=== PATIENT | female | born 1930 | race Caucasian/White ===

== ENCOUNTER 2018-02-08 19:06 | Inpatient (IN) | payer MEDICARE, MEDICAID ==
[~2018-02-08] VITALS: Ht 165.1 cm; Wt 79.8 kg
[~2018-02-08 19:06] MED LIST: AMIN30LI2 PO; ASCO500C16 PO; ATOR20TA PO; CALC1TAB84 PO; CARV25TA2 PO; CHOL200074 PO; CLON0.1T PO; DONE5TAB7 PO; GUAI120S17 PO; HYDR-3326 PO; HYDR-4077 PO; HYDR-552 PO; ISON300T4 PO; LORA10CA PO; MIRT7.5T10 PO; OMEP20TA20 PO; PYRI50TA14 PO; ZOLP5TAB2 PO
--- NOTE | 2018-02-08 19:10 | NUR ---
Dr. Martin at bedside for MSE.
[2018-02-08] MEDS ORDERED: METRONIDAZOLE 500 MG/NS 100ML 100 ML IV ONE ×2 (19:30→19:39)
[2018-02-08] MEDS ORDERED: DEXAMETHASONE SOD PHOSPHATE 4 MG INJ IV ONE (19:30)
[2018-02-08] MEDS ORDERED: CEFEPIME HCL 1 G in IV DEXTROSE 5% 50 ML IV ONE (19:30)
[2018-02-08] MEDS ORDERED: VANCOMYCIN IV 1,000 MG in IV DEXTROSE 5% 250 ML IV ONE (19:30)
[2018-02-08] MEDS ORDERED: IV NORMAL SALINE 1000 ML BAG IV ONE (19:30)
[2018-02-08] MEDS ORDERED: DEXAMETHASONE SOD PHOSPHATE 10 MG INJ ONE (19:38)
[2018-02-08] MEDS ORDERED: VANCOMYCIN IV 200 ML ONE (19:39)
[2018-02-08] MEDS ORDERED: CEFEPIME HCL 1 G VIAL ONE (19:41)
[2018-02-08 19:49] LABS: BASOPHILS # (AUTO) 0.1 K/uL (0.0-8.0); BASOPHILS % (AUTO) 0.5 % (0.0-2.0); EOSINOPHILS # (AUTO) 0.1 K/uL (0.0-0.7); HEMATOCRIT 32.3 % (31.2-41.9); HEMOGLOBIN 10.5 g/dL (10.9-14.3); LYMPHOCYTES # (AUTO) 0.8 K/uL (20.0-40.0); LYMPHOCYTES % (AUTO) 8.2 % (20.5-51.5); MEAN CORPUSCULAR HEMOGLOBIN 29.9 uug (24.7-32.8); MEAN CORPUSCULAR HGB CONC 33 g/dL (32.3-35.6); MEAN CORPUSCULAR VOLUME 91.9 fL (75.5-95.3); MONOCYTES # (AUTO) 1.1 K/uL (2.0-10.0); MONOCYTES % (AUTO) 11.8 % (0.0-11.0); NEUTROPHILS # (AUTO) 7.6 K/uL (1.8-8.9); NEUTROPHILS % (AUTO) 78.5 % (38.5-71.5); PLATELET COUNT (AUTO) 168 K/uL (179-408); RED BLOOD CELL COUNT(AUTO) 3.51 MIL/uL (3.63-4.92); WHITE BLOOD COUNT (AUTO) 9.7 K/uL (3.8-11.8)
[2018-02-08 20:02] LABS: CARBON DIOXIDE 29 mmol/L (21-32); CHLORIDE 101 mmol/L (98-107); CREATININE 3.1 mg/dL (0.6-1.3); GLUCOSE 117 mg/dL (74-106); POTASSIUM 3.2 mmol/L (3.5-5.1); UREA NITROGEN, BLOOD 47 mg/dL (7-18)
[2018-02-08 20:15] LABS: ALANINE AMINOTRANSFERASE 26 U/L (14-59); ALKALINE PHOSPHATASE 56 U/L (50-136); ASPARTATE AMINOTRANSFERASE 20 U/L (15-37); BILIRUBIN,DIRECT 0.2 mg/dL (0.0-0.2); BILIRUBIN,TOTAL 0.6 mg/dL (0.2-1.0); TOTAL PROTEIN, SERUM 6.2 g/dL (6.4-8.2)
--- NOTE | 2018-02-08 20:43 | NUR ---
Dr. Martin on panel call with Dr. Janel Roblero.
--- NOTE | 2018-02-08 21:34 | NUR ---
Passed report to Sherrie BERRIOS Tele
[2018-02-08] MEDS ORDERED: ACET-2154 PO (21:50)
[2018-02-08] MEDS ORDERED: [UNRECOGNIZED DRUG - CODE] TP (21:50)
[2018-02-08] MEDS ORDERED: PANT40TA2 PO (21:50)
[2018-02-08] MEDS ORDERED: FURO-151 PO (21:50)
[2018-02-08] MEDS ORDERED: MELA3TAB PO (21:50)
[2018-02-08] MEDS ORDERED: FAMO-132 PO (21:50)
[2018-02-08] MEDS ORDERED: ONDA4TAB5 PO (21:50)
[2018-02-08] MEDS ORDERED: FERR325T24 PO (21:50)
[2018-02-08] MEDS ORDERED: POTA10TA15 PO (21:50)
[2018-02-08] MEDS ORDERED: BENZ1LOZ58 MM (21:50)
[2018-02-08] MEDS ORDERED: FAMO1TAB29 PO (21:50)
--- NOTE | 2018-02-08 22:00 | NUR ---
Patient in bed, no acute signs of distress, confused and disoriented x 2, oriented to person.
--- NOTE | 2018-02-08 23:00 | NUR ---
RECEIVED PT FROM ER BY Edwin CHASE. PT IS AWAKE AND CONFUSED. SHE CAN ONLY RECOGNIZE HER NAME. PT ADMITTED TO TEL. BELONGING LIST DONE. ADMISSION PROCESS AND CAREPLAN INITITATED. ASSISTED ASSESSMENT DONE. PHOTO TAKEN FOR HER NOSE,RIGHT GROIN, SACRAL AREA, RIGHT UPPERARM. THERE'S REDNESS ALSO IN HER LEFT GROIN.PT ON 2L NASAL CANULA. IV INTACT AND PATENT. CALL LIGHT WITHIN REACH. BED ALARM ON AND IN LOW POSITION. WILL CONTINUE TO MONITOR.
[2018-02-08] MEDS ORDERED: ONDANSETRON 4 MG/2 ML VIAL IV PRN (23:30)
[2018-02-09] MEDS ORDERED: AZITHROMYCIN IV 500 MG in IV DEXTROSE 5% 250 ML IV SCH ×2
[2018-02-09] MEDS ORDERED: ONDANSETRON 4 MG/2 ML VIAL IV PRN
[2018-02-09 00:10] VITALS: BP 147/53
[2018-02-09 00:37] VITALS: BP 153/59
[2018-02-09] MEDS: ACETAMINOPHEN 325 MG TABLET PO PRN ×2 (00:57→06:23)
[2018-02-09] MEDS ORDERED: AZITHROMYCIN 500 MG VIAL IV ONE (01:01)
[2018-02-09] MEDS: ALBUTEROL SULFATE 2.5 MG/3 ML NEBU NEB PRN ×3 (01:06→12:32)
[2018-02-09 02:15] LABS: *BILIRUBIN,URIN NEGATIVE (NEGATIVE); *BLOOD, URINE NEGATIVE (NEGATIVE); *CLARITY,URINE CLEAR (CLEAR); *COLOR,URINE YELLOW (YELLOW); *KETONES,URINE NEGATIVE (NEGATIVE); *PROTEIN,URINE 1+ (NEGATIVE); *UROBILINOGEN,URINE 0.2 E.U./dl (NORMAL); LEUKOCYTE ESTERASE ,URINE NEGATIVE (NEGATIVE); NITRITE, URINE NEGATIVE (NEGATIVE); PH,URINE 5.5 (5.0-8.0); UGLUCOSE NEGATIVE (NEGATIVE)
[2018-02-09 02:27] LABS: BACTERIA,URINE NONE SEEN /HPF (NONE SEEN); RBC,URINE NONE SEEN /HPF (0-3); SQUAMOUS EPITHELIAL CELL,UR FEW /HPF (NONE SEEN); WBC,URINE 0-3 /HPF (0-3)
--- NOTE | 2018-02-09 03:00 | NUR ---
PT TRYING TO GET OUT OF THE BED. PT TRYING TO PULL OUT HER IV SITE. PT ANXIOUS. I TRIED TO CALM HER. DISTRACTION METHOD EFFECTIVE. WILL CONTINUE TO MONITOR.
[2018-02-09 04:34] VITALS: BP 147/64
--- NOTE | 2018-02-09 06:32 | NUR ---
PT SLEPT INTERMITTENTLY. PT SHOWS NO SIGNS OF DISTRESS. PT VITAL SIGNS STABLE AND WITHIN NORMAL LIMIT. PT TRYING TO GET OUT OF THE BED.PRESCRIBED MEDICATION GIVEN . PT TOLERATED IT WELL.IV INTACT AND PATENT. CALL LIGHT WITHIN REACH. BED ALARM ON AND IN LOW POSITION.SAFETY AND COMFORT PROVIDED.WILL ENDORSE TO DAYSHIFT NURSE.
[2018-02-09 06:41] LABS: BASOPHILS % (AUTO) 0.1 % (0.0-2.0); LYMPHOCYTES # (AUTO) 0.2 K/uL (20.0-40.0); LYMPHOCYTES % (AUTO) 2.5 % (20.5-51.5); MEAN CORPUSCULAR HEMOGLOBIN 30.1 uug (24.7-32.8); MEAN CORPUSCULAR HGB CONC 33 g/dL (32.3-35.6); MEAN CORPUSCULAR VOLUME 92.8 fL (75.5-95.3); MONOCYTES # (AUTO) 0.1 K/uL (2.0-10.0); MONOCYTES % (AUTO) 1.1 % (0.0-11.0); NEUTROPHILS % (AUTO) 96.3 % (38.5-71.5); PLATELET COUNT (AUTO) 179 K/uL (179-408); RED BLOOD CELL COUNT(AUTO) 3.66 MIL/uL (3.63-4.92); WHITE BLOOD COUNT (AUTO) 9.3 K/uL (3.8-11.8)
[2018-02-09] MEDS ORDERED: CLONIDINE HCL 0.1 MG TABLET PO PRN (07:15)
[2018-02-09] MEDS: hydrALAZINE HCL 50 MG TABLET PO SCH ×3 (07:36→21:41)
--- NOTE | 2018-02-09 08:02 | NUR ---
Awake, confused, oriented to name. On moderate high back rest. O2 at 3L/NC with O2 sat of 100%, decrease to 2L. HHN given. Restless, repeatedly ask to get up. She thinks she's at the [facility]. Reoriented. Bed alarm on
[2018-02-09] MEDS ORDERED: ZOLPIDEM 5 MG TABLET PO PRN (08:30)
[2018-02-09] MEDS ORDERED: FAMOTIDINE PO PRN (08:45)
[2018-02-09] MEDS ORDERED: CALCIUM CARB PO PRN (08:45)
[2018-02-09] MEDS ORDERED: [UNRECOGNIZED DRUG - OTHER] PO PRN (08:45)
[2018-02-09] MEDS ORDERED: ONDANSETRON HCL 4 MG TABLET PO PRN (08:45)
[2018-02-09] MEDS ORDERED: MAG PO PRN (08:45)
[2018-02-09] MEDS ORDERED: ACETAMINOPHEN 325 MG TABLET PO PRN (08:45)
[2018-02-09] MEDS ORDERED: HYDROCODONE/APAP 5-325MG TABLET PO PRN (09:00)
[2018-02-09] MEDS ORDERED: LORATADINE 10 MG TABLET PO SCH (09:00)
[2018-02-09] MEDS ORDERED: FUROSEMIDE 40 MG TABLET PO SCH (09:00)
[2018-02-09] MEDS ORDERED: PANTOPRAZOLE SODIUM 40 MG TABLET.DR PO SCH (09:00)
[2018-02-09] MEDS ORDERED: PYRIDOXINE HCL 100 MG TABLET PO SCH (09:00)
[2018-02-09] MEDS ORDERED: CALCIUM CARBONATE 500 MG TAB.CHEW PO PRN (09:15)
[2018-02-09] MEDS: CARVEDILOL 25 MG TABLET PO SCH ×2 (09:21→17:49)
[2018-02-09] MEDS: ASCORBIC ACID 250 MG TABLET PO SCH (09:22)
[2018-02-09] MEDS: CHOLECALCIFEROL 1,000 UNIT TABLET PO SCH (09:22)
[2018-02-09] MEDS: FERROUS SULFATE 325 MG TABEC PO SCH (09:22)
[2018-02-09] MEDS: FAMOTIDINE 20 MG TABLET PO SCH (09:24)
[2018-02-09] MEDS: GUAIFENESIN/DEXTROMETHORPHAN 5 ML UDC PO PRN ×2 (09:24→17:49)
--- NOTE | 2018-02-09 09:24 | NUR ---
With bouts of cough, Robitussin po given as ordered.
[2018-02-09] MEDS: LORAZEPAM 0.5 MG TABLET PO PRN ×2 (10:16→17:58)
--- NOTE | 2018-02-09 10:16 | NUR ---
Anxious and restless. Ativan po given as ordered
--- NOTE | 2018-02-09 11:00 | NUR ---
With urge for BM and wants to go to the bathroom. Provided commode instead. Assisted to the commode with 2 person assist, able to do stand pivot but with difficulty. Able to have BM
[2018-02-09 11:40] VITALS: BP 147/60
[2018-02-09] MEDS ORDERED: HYDROCODONE/APAP 5-325MG TABLET PO SCH (12:30)
[2018-02-09] MEDS: FUROSEMIDE 40 MG/4 ML VIAL IV SCH ×2 (12:31→21:40)
[2018-02-09 15:12] VITALS: BP 150/68
--- NOTE | 2018-02-09 15:44 | NUR ---
Sleeping since 1200, comfortable, daughter at bedside
--- NOTE | 2018-02-09 17:00 | NUR ---
Awake, assisted with meal, able to eat 25 % of meal. Urinated with diaper. Incontinence care done. Repositioned comfortably
--- NOTE | 2018-02-09 19:15 | NUR ---
RECEIVED PT ASLEEP ON BED.PT SHOWS NO SIGNS OF DISTRESS. PT IV ON HEPLOCK, INTACT AND PATENT. PT ON 2L NASAL CANULA.CALL LIGHT WITHIN REACH. BED ALARM ON AND SIDE RAILS UP. SAFETY AND COMFORT PROVIDED. WILL CONTINUE TO MONITOR.
[2018-02-09 20:16] VITALS: BP 121/46
[2018-02-09] MEDS ORDERED: MELATONIN 3 MG TABLET PO SCH (21:00)
[2018-02-09] MEDS: DONEPEZIL 5 MG TABLET PO SCH (21:40)
[2018-02-09] MEDS: MICONAZOLE NITRATE CREAM 15 GM TUBE TP SCH (21:40)
[2018-02-09] MEDS: MIRTAZAPINE 15 MG TABLET PO SCH (21:40)
[2018-02-10] MEDS: hydrALAZINE HCL 50 MG TABLET PO SCH ×3 (05:57→21:31)
[2018-02-10] MEDS: GUAIFENESIN/DEXTROMETHORPHAN 5 ML UDC PO PRN ×2 (05:58→21:08)
[2018-02-10 06:12] VITALS: BP 125/46
--- NOTE | 2018-02-10 06:12 | NUR ---
PT SLEPT THROUGHOUT THE SHIFT. PT SHOWS NO SIGNS OF DISTRESS. PRESCRIBED MEDICATION GIVEN AND PT TOLERATED IT WELL. PT STABLE.CALL LIGHT WITHIN REACH. BED ALARM ON AND SIDE RAILS UP. SAFETY AND COMFORT PROVIDED.WILL ENDORSE TO DAYSHIFT NURSE.
[2018-02-10 06:53] LABS: ALANINE AMINOTRANSFERASE 42 U/L (14-59); ALKALINE PHOSPHATASE 62 U/L (50-136); ASPARTATE AMINOTRANSFERASE 33 U/L (15-37); BILIRUBIN,TOTAL 0.5 mg/dL (0.2-1.0); CARBON DIOXIDE 26 mmol/L (21-32); CHLORIDE 99 mmol/L (98-107); CREATINE KINASE, TOTAL 26 U/L (26-192); CREATININE 3.3 mg/dL (0.6-1.3); GLUCOSE 155 mg/dL (74-106); MAGNESIUM 1.8 mg/dL (1.8-2.4); PHOSPHOROUS 5.1 mg/dL (2.5-4.9); POTASSIUM 3.9 mmol/L (3.5-5.1); TOTAL PROTEIN, SERUM 6.2 g/dL (6.4-8.2); UREA NITROGEN, BLOOD 56 mg/dL (7-18)
[2018-02-10 06:54] LABS: THYROID STIMULATING HORMONE 0.221 mIU/mL (0.358-3.740)
--- NOTE | 2018-02-10 07:00 | NUR ---
RECEIVED REPORT FROM ELECTRIC MILKERS INSTALLER NURSE. PATIENT ASLEEP ON BED A AND O X1, CONFUSION NOTED, TENDS TO REPEAT WORDS/PHRASES. ON O2 @ 2LPM VIA NC, O2 WNL. NO ACUTE DISTRESS NOTED. NON PRODUCTIVE COUGH NOTED. IV ACCESS ON THE RFA #22 INTACT AND PATENT. NO COMPLAINTS OF PAIN/DISCOMFORT AT THIS TIME. COMFORT MEASURES PROVIDED. CALL LIGHT WITHIN REACH. WILL CONTINUE TO MONITOR CLOSELY.
[2018-02-10 07:09] LABS: BASOPHILS % (AUTO) 0.2 % (0.0-2.0); EOSINOPHILS % (AUTO) 0.1 % (0.0-7.0); HEMATOCRIT 34.1 % (31.2-41.9); HEMOGLOBIN 11.1 g/dL (10.9-14.3); LYMPHOCYTES # (AUTO) 0.3 K/uL (20.0-40.0); LYMPHOCYTES % (AUTO) 3.6 % (20.5-51.5); MEAN CORPUSCULAR HEMOGLOBIN 29.9 uug (24.7-32.8); MEAN CORPUSCULAR HGB CONC 33 g/dL (32.3-35.6); MEAN CORPUSCULAR VOLUME 91.9 fL (75.5-95.3); MONOCYTES # (AUTO) 0.5 K/uL (2.0-10.0); MONOCYTES % (AUTO) 5.8 % (0.0-11.0); NEUTROPHILS # (AUTO) 8.4 K/uL (1.8-8.9); NEUTROPHILS % (AUTO) 90.3 % (38.5-71.5); PLATELET COUNT (AUTO) 187 K/uL (179-408); RED BLOOD CELL COUNT(AUTO) 3.72 MIL/uL (3.63-4.92); WHITE BLOOD COUNT (AUTO) 9.3 K/uL (3.8-11.8)
[2018-02-10] MEDS: FAMOTIDINE 20 MG TABLET PO SCH (08:52)
[2018-02-10] MEDS: FUROSEMIDE 40 MG/4 ML VIAL IV SCH (08:52)
[2018-02-10] MEDS: FERROUS SULFATE 325 MG TABEC PO SCH (08:52)
[2018-02-10] MEDS: ASCORBIC ACID 250 MG TABLET PO SCH (08:52)
[2018-02-10] MEDS: CHOLECALCIFEROL 1,000 UNIT TABLET PO SCH (08:52)
[2018-02-10] MEDS: ASPIRIN 81 MG TAB.CHEW PO SCH (08:53)
[2018-02-10] MEDS: CARVEDILOL 25 MG TABLET PO SCH ×2 (08:53→17:23)
[2018-02-10] MEDS: LORATADINE 10 MG TABLET PO SCH (08:53)
[2018-02-10] MEDS: MICONAZOLE NITRATE CREAM 15 GM TUBE TP SCH ×2 (09:02→20:24)
[2018-02-10 11:16] VITALS: BP 132/57
[2018-02-10] MEDS ORDERED: HALOPERIDOL LACTATE 5 MG/1 ML VIAL IM PRN (11:45)
[2018-02-10] MEDS: IV D5/ 0.9% NACL 1,000 ML IV PRN (12:35)
[2018-02-10 13:25] LABS: *BILIRUBIN,URIN NEGATIVE (NEGATIVE); *BLOOD, URINE NEGATIVE (NEGATIVE); *CLARITY,URINE CLEAR (CLEAR); *COLOR,URINE YELLOW (YELLOW); *KETONES,URINE NEGATIVE (NEGATIVE); *PROTEIN,URINE NEGATIVE (NEGATIVE); *UROBILINOGEN,URINE 0.2 E.U./dl (NORMAL); LEUKOCYTE ESTERASE ,URINE NEGATIVE (NEGATIVE); NITRITE, URINE NEGATIVE (NEGATIVE); UGLUCOSE NEGATIVE (NEGATIVE)
[2018-02-10 13:27] LABS: BACTERIA,URINE NONE SEEN /HPF (NONE SEEN); RBC,URINE 0-3 /HPF (0-3); SQUAMOUS EPITHELIAL CELL,UR FEW /HPF (NONE SEEN); WBC,URINE 0-3 /HPF (0-3)
--- NOTE | 2018-02-10 13:27 | NUR ---
STRAIGHT CATH DONE FOR URINE SPECIMEN, WELL TOLERATED 400 CC URINE OUTPUT NOTED. WILL CONTINUE TO MONITOR CLOSLEY.
[2018-02-10 13:40] LABS: *URINE TOTAL PROTEIN RANDOM 27.3 mg/dL (<150/24HR)
[2018-02-10 15:26] VITALS: BP 144/62
--- NOTE | 2018-02-10 17:11 | NUR ---
PATIENT IN BED ASLEEP, NO ACUTE DISTRESS NOTED. NO EPISODES OF AGITATION AT THIS TIME. IVF INFUSING WELL, NON PRODUCTIVE COUGH STILL PRESENT. NO COMPLAINTS OF PAIN/DISCOMFORT. ALL NEEDS ATTENDED AND ANTICIPATED. CALL LIGHT WITHIN REACH. WILL CONTINUE TO MONITOR CLOSELY.
--- NOTE | 2018-02-10 19:45 | NUR ---
RECEIVED PATIENT IN BED AWAKE BUT FORGETFUL, HOB ELEVATED, NO SOB NO CHEST PAIN, ON OXYGEN 2LPM FOR ASSIST, OXYGEN SAT WNL, DENIES PAIN, KEPT CLEAN AND DRY, PATIENT HAS A SLIGHT PRODUCTIVE COUGH, KEPT HOP ELEVATED, CONT TO MONITOR.
[2018-02-10] MEDS: MIRTAZAPINE 15 MG TABLET PO SCH (20:10)
[2018-02-10] MEDS: DONEPEZIL 5 MG TABLET PO SCH (20:10)
[2018-02-10 20:12] VITALS: BP 131/64
[2018-02-10] MEDS: ACETAMINOPHEN 325 MG TABLET PO PRN (21:08)
[2018-02-10] MEDS: ALBUTEROL SULFATE 2.5 MG/3 ML NEBU NEB PRN (22:00)
--- NOTE | 2018-02-10 23:30 | NUR ---
PATIENT RECEIVED BREATHING TREATMENT FOR COUGH WITH HELP AFTER THE TREATMENT. PATIENT WAS GIVEN COUGH MEDICATIONS, AND TYLENOL 650MG FOR PAIN AND COMFORT, CONT TO MONITOR. TURN AND REPOSITION EVERY TWO HOURS. CALL LIGHT WITHIN REACH.
[2018-02-11 05:24] VITALS: BP 141/58
[2018-02-11] MEDS: hydrALAZINE HCL 50 MG TABLET PO SCH ×3 (06:08→22:54)
--- NOTE | 2018-02-11 06:32 | NUR ---
PATIENT SLEPT ON AND OFF, WITH EPISODE OF MOIST COUGH, HHN TX DONE ORDERED WITH HELP. PATIENT HAS NO COMPLAIN OF PAIN AT THIS TIME, CONT ON OXYGEN THERAPY FOR ASSIST. CONT TO MONITOR.
[2018-02-11 06:50] LABS: CHLORIDE 100 mmol/L (98-107); CREATININE 3.3 mg/dL (0.6-1.3); GLUCOSE 126 mg/dL (74-106); PHOSPHOROUS 4.9 mg/dL (2.5-4.9); POTASSIUM 3.9 mmol/L (3.5-5.1); UREA NITROGEN, BLOOD 63 mg/dL (7-18)
[2018-02-11 06:51] LABS: BASOPHILS % (AUTO) 0.2 % (0.0-2.0); EOSINOPHILS % (AUTO) 0.2 % (0.0-7.0); HEMATOCRIT 33.3 % (31.2-41.9); LYMPHOCYTES # (AUTO) 0.6 K/uL (20.0-40.0); LYMPHOCYTES % (AUTO) 6.1 % (20.5-51.5); MEAN CORPUSCULAR HEMOGLOBIN 30.3 uug (24.7-32.8); MEAN CORPUSCULAR HGB CONC 33 g/dL (32.3-35.6); MEAN CORPUSCULAR VOLUME 91.5 fL (75.5-95.3); MONOCYTES # (AUTO) 0.9 K/uL (2.0-10.0); MONOCYTES % (AUTO) 10.2 % (0.0-11.0); NEUTROPHILS # (AUTO) 7.5 K/uL (1.8-8.9); NEUTROPHILS % (AUTO) 83.3 % (38.5-71.5); PLATELET COUNT (AUTO) 195 K/uL (179-408); RED BLOOD CELL COUNT(AUTO) 3.64 MIL/uL (3.63-4.92)
--- NOTE | 2018-02-11 07:05 | NUR ---
RECEIVED REPORT FROM MAINTENANCE MECHANIC TECHNICIAN NURSE, PATIENT IN BED ASLEEP, NO DISTRESS NOTED, BED IN LOW POSITION, SIDE RAILS UP X2. BED ALARM ON. CRACKLES HEARD UPON LUNG AUSCULTATION.
[2018-02-11 07:10] LABS: CARBON DIOXIDE 26 mmol/L (21-32)
[2018-02-11] MEDS: ALBUTEROL SULFATE 2.5 MG/3 ML NEBU NEB PRN (07:46)
[2018-02-11] MEDS: FAMOTIDINE 20 MG TABLET PO SCH (08:29)
[2018-02-11] MEDS: CHOLECALCIFEROL 1,000 UNIT TABLET PO SCH (08:29)
[2018-02-11] MEDS: FERROUS SULFATE 325 MG TABEC PO SCH (08:29)
[2018-02-11] MEDS: ASCORBIC ACID 250 MG TABLET PO SCH (08:30)
[2018-02-11] MEDS: ASPIRIN 81 MG TAB.CHEW PO SCH (08:30)
[2018-02-11] MEDS: CARVEDILOL 25 MG TABLET PO SCH ×2 (08:30→17:22)
[2018-02-11] MEDS: MICONAZOLE NITRATE CREAM 15 GM TUBE TP SCH ×2 (08:31→20:37)
[2018-02-11] MEDS: GUAIFENESIN/DEXTROMETHORPHAN 5 ML UDC PO PRN ×2 (08:33→17:32)
[2018-02-11] MEDS ORDERED: LEVOFLOXACIN 500 MG/D5W 500 MG in PREMIXED 1 EACH IV SCH (10:45)
[2018-02-11 11:34] VITALS: BP 134/60
[2018-02-11] MEDS: AZITHROMYCIN IV 250 MG in IV DEXTROSE 5% 250 ML IV SCH (11:47)
[2018-02-11 15:32] VITALS: BP 139/59
[2018-02-11] MEDS: IV D5/ 0.9% NACL 1,000 ML IV PRN (16:11)
--- NOTE | 2018-02-11 17:30 | NUR ---
PATIENT STARTED TO COUGH MORE FREQUENTLY, ROBITUSSION DM GIVEN.
[2018-02-11 20:13] VITALS: BP 133/58
[2018-02-11] MEDS: MIRTAZAPINE 15 MG TABLET PO SCH (20:36)
[2018-02-11] MEDS: DONEPEZIL 5 MG TABLET PO SCH (20:36)
[2018-02-11] MEDS: methylPREDNISolone SOD SUCC 40 MG/ML VIAL IV SCH (20:37)
[2018-02-12] MEDS: ALBUTEROL SULFATE 2.5 MG/3 ML NEBU NEB PRN ×2 (03:05→07:23)
[2018-02-12] MEDS: ACETAMINOPHEN 325 MG TABLET PO PRN (04:16)
[2018-02-12] MEDS: GUAIFENESIN/DEXTROMETHORPHAN 5 ML UDC PO PRN ×2 (04:17→17:05)
[2018-02-12 04:33] VITALS: BP 161/63
[2018-02-12] MEDS: hydrALAZINE HCL 50 MG TABLET PO SCH ×3 (05:20→21:09)
--- NOTE | 2018-02-12 05:23 | NUR ---
Patient slept intermittently t/o the night. No acute distress noted. No c/o pain or SOB. O2 2L NC. IVF infusing. Patient has a productive cough, Robitussin DM given as ordered. Breathing TX was followed. Patient needs multiple re-direction. She states "I need to pee" despite having a meadows. VSS. All meds given with no adverse reaction. Meadows draining yellow clear urine. Safety and comfort measures maintained t/o shift. All needs met.
[2018-02-12 07:12] LABS: BASOPHILS % (AUTO) 0.2 % (0.0-2.0); HEMATOCRIT 33.7 % (31.2-41.9); LYMPHOCYTES # (AUTO) 0.2 K/uL (20.0-40.0); LYMPHOCYTES % (AUTO) 2.5 % (20.5-51.5); MEAN CORPUSCULAR HEMOGLOBIN 29.7 uug (24.7-32.8); MEAN CORPUSCULAR HGB CONC 33 g/dL (32.3-35.6); MEAN CORPUSCULAR VOLUME 91.1 fL (75.5-95.3); MONOCYTES # (AUTO) 0.1 K/uL (2.0-10.0); MONOCYTES % (AUTO) 1.6 % (0.0-11.0); NEUTROPHILS # (AUTO) 7.4 K/uL (1.8-8.9); NEUTROPHILS % (AUTO) 95.7 % (38.5-71.5); PLATELET COUNT (AUTO) 181 K/uL (179-408); WHITE BLOOD COUNT (AUTO) 7.8 K/uL (3.8-11.8)
[2018-02-12 07:16] LABS: ALANINE AMINOTRANSFERASE 37 U/L (14-59); ALKALINE PHOSPHATASE 58 U/L (50-136); ASPARTATE AMINOTRANSFERASE 20 U/L (15-37); BILIRUBIN,TOTAL 0.4 mg/dL (0.2-1.0); CARBON DIOXIDE 28 mmol/L (21-32); CHLORIDE 102 mmol/L (98-107); GLUCOSE 235 mg/dL (74-106); PHOSPHOROUS 4.4 mg/dL (2.5-4.9); POTASSIUM 4.2 mmol/L (3.5-5.1); TOTAL PROTEIN, SERUM 6.1 g/dL (6.4-8.2); UREA NITROGEN, BLOOD 66 mg/dL (7-18)
[2018-02-12] MEDS: FERROUS SULFATE 325 MG TABEC PO SCH (08:16)
[2018-02-12] MEDS: ASCORBIC ACID 250 MG TABLET PO SCH (08:16)
[2018-02-12] MEDS: CARVEDILOL 25 MG TABLET PO SCH ×2 (08:19→17:04)
[2018-02-12] MEDS: CHOLECALCIFEROL 1,000 UNIT TABLET PO SCH (08:19)
[2018-02-12] MEDS: methylPREDNISolone SOD SUCC 40 MG/ML VIAL IV SCH ×2 (08:20→21:09)
[2018-02-12] MEDS: FAMOTIDINE 20 MG TABLET PO SCH (08:20)
[2018-02-12] MEDS: ASPIRIN 81 MG TAB.CHEW PO SCH (08:20)
[2018-02-12] MEDS: LORATADINE 10 MG TABLET PO SCH (08:20)
[2018-02-12] MEDS: MICONAZOLE NITRATE CREAM 15 GM TUBE TP SCH ×2 (08:21→21:00)
[2018-02-12] MEDS: AZITHROMYCIN IV 250 MG in IV DEXTROSE 5% 250 ML IV SCH (09:58)
--- NOTE | 2018-02-12 10:21 | NUR ---
Complaint with morning medications, noted poor appetite. Boost order with meals. Pt is awake and resting in bed with no apparent s/s of SOB, pain, distress or discomfort Addendum: 02/12/18 at 1027 by LOGAN WEEKS RN Noted pt to be moaning and groaning.
[2018-02-12 12:00] VITALS: BP 140/66
[2018-02-12 12:07] LABS: A/G RATIO 1.7 (0.7-1.7); ALBUMIN 3.5 g/dL (2.9-4.4); ALPHA-1-GLOBULIN 0.3 g/dL (0.0-0.4); ALPHA-2-GLOBULIN 0.6 g/dL (0.4-1.0); BETA GLOBULIN 0.7 g/dL (0.7-1.3); GAMMA GLOBULIN 0.5 g/dL (0.4-1.8); GLOBULIN, TOTAL 2.1 g/dL (2.2-3.9); M-SPIKE Not Observed g/dL (Not Observed)
[2018-02-12 16:00] VITALS: BP 154/68
[2018-02-12] MEDS: IV D5/ 0.9% NACL 1,000 ML IV PRN (16:50)
--- NOTE | 2018-02-12 17:14 | NUR ---
Pt compliant with medication after explaining the meds. Noted pt moans and groans. Has been alert to name able to state daughters name ans speak with her over the phone for a couple of minutes. DVT pumps in place. Offloading bilateral lower extremities. O2 via NC. Bed at lowest position for safety and call light within reach for assistance
--- NOTE | 2018-02-12 18:45 | NUR ---
Girlfriend is by bedside. Pt is happy that she is here. Pt apologized for stating he wanted to leave. Pt is under no immediate pain, distress, discomfort or SOB. Addendum: 02/12/18 at 1913 by LOGAN WEEKS RN Disregard previous comment. Wrong pt.
[2018-02-12 20:00] VITALS: BP 133/64
[2018-02-12] MEDS: DONEPEZIL 5 MG TABLET PO SCH (21:09)
[2018-02-12] MEDS: MIRTAZAPINE 15 MG TABLET PO SCH (21:09)
--- NOTE | 2018-02-13 04:30 | NUR ---
pt alert,oriented to her name, moans, coughing. denies any pain ,no sob, kept hob elevated per pt comfort, oxygen on 2 liters. new iv started to left hand and infusing well overnight, continue with iv fluids, vss,afebrile.meadows draining well, no bm. reposition for comfort,all needs attended.will continue to monitor.
[2018-02-13 05:15] VITALS: BP 166/71
[2018-02-13] MEDS: hydrALAZINE HCL 50 MG TABLET PO SCH (05:32)
[2018-02-13] MEDS: ALBUTEROL SULFATE 2.5 MG/3 ML NEBU NEB PRN ×2 (07:42→11:27)
--- NOTE | 2018-02-13 08:00 | NUR ---
AWAKE ORTX2 COOPERATE WELL NO ACUTE DISTRESS STILL COUGHING RT GIVEN TREATMENT THIS AM ABRAHAM PROCEDURE WELL ON ASPIRATION AND FALL PRECAUTION BED ALARM ON AND CALL LIGHT IN REACH CONTINUE O2 AT 2L O2 SAT WNL
[2018-02-13] MEDS ORDERED: ASPI81TA31 PO (08:25)
[2018-02-13] MEDS ORDERED: MIRT15TA7 PO (08:25)
[2018-02-13] MEDS: methylPREDNISolone SOD SUCC 40 MG/ML VIAL IV SCH (08:33)
[2018-02-13] MEDS: FAMOTIDINE 20 MG TABLET PO SCH (08:34)
[2018-02-13] MEDS: ASPIRIN 81 MG TAB.CHEW PO SCH (08:34)
[2018-02-13] MEDS: FERROUS SULFATE 325 MG TABEC PO SCH (08:34)
[2018-02-13] MEDS: ASCORBIC ACID 250 MG TABLET PO SCH (08:34)
[2018-02-13] MEDS: CHOLECALCIFEROL 1,000 UNIT TABLET PO SCH (08:34)
[2018-02-13] MEDS: AZITHROMYCIN IV 250 MG in IV DEXTROSE 5% 250 ML IV SCH (08:34)
[2018-02-13] MEDS: CARVEDILOL 25 MG TABLET PO SCH (08:35)
[2018-02-13] MEDS: ACETAMINOPHEN 325 MG TABLET PO PRN (08:35)
[2018-02-13] MEDS: MICONAZOLE NITRATE CREAM 15 GM TUBE TP SCH (08:36)
--- NOTE | 2018-02-13 10:00 | NUR ---
DR ZAMUDIO SEE PATIENT AND LAB RESULT ORDER OK TO D/C BACK TO [facility] TODAY WITH ORDERS D/C INSTRUCTION REGARDING CONTINUE HOME MEDICINE ,F/U WITH OWN PMD AND EDUCATION PK GIVE EXPLAINED TO FAMILY AND PATIENT
[2018-02-13 11:41] VITALS: BP 133/59
--- NOTE | 2018-02-13 12:00 | NUR ---
REPORT GIVEN TO NURSE LI AT [facility] VIA TEL HL AND F/C WAS DISCONTINUE PRIOR D/C TODAY
--- NOTE | 2018-02-13 13:15 | NUR ---
D/C TO [facility] VIA AMBULANCE CONDITION STABLE NO ACUTE DISTRESS
== END 2018-02-13 13:15 | DRG 682 ==
LOC: ER 19:06 → TELE 22:48 → MED 02-09 20:42
PROVIDERS: ADMIT Internal Medicine Nephrology; ATTEND Internal Medicine Nephrology
DX: N17.0 Acute kidney failure with tubular necrosis (principal); I21.A1 Myocardial infarction type 2; G92 Toxic encephalopathy; I50.23 Acute on chronic systolic (congestive) heart failure; R13.10 Dysphagia, unspecified; I42.9 Cardiomyopathy, unspecified; I13.0 Hypertensive heart and chronic kidney disease with heart failure and stage 1 through stage 4 chronic kidney disease, or unspecified chronic kidney disease; F03.90 Unspecified dementia, unspecified severity, without behavioral disturbance, psychotic disturbance, mood disturbance, and anxiety; D64.9 Anemia, unspecified; R76.11 Nonspecific reaction to tuberculin skin test without active tuberculosis; Z95.0 Presence of cardiac pacemaker; N18.9 Chronic kidney disease, unspecified; I25.10 Atherosclerotic heart disease of native coronary artery without angina pectoris; Z88.0 Allergy status to penicillin; E78.5 Hyperlipidemia, unspecified; K21.9 Gastro-esophageal reflux disease without esophagitis
CPT/HCPCS: 36415; 70030-TC; 71045; 76770; 82746; 83605; 83735; 83970; 84100; 84155; 84156; 84165; 84300; 84443; 85025; 85730; 86592; 87040; 87086; 87400; 93005; 93307; 94640; 94664; A4663; C1758; J0456; J0692; J1100; J1940; J2920; J3370; J3490; J7030; J7040; J7042; J7060

== ENCOUNTER 2018-05-09 17:08 | Inpatient (IN) | payer MEDICARE, MEDICAID ==
[~2018-05-09] VITALS: Ht 165.1 cm; Wt 79.0 kg
[~2018-05-09 17:08] MED LIST changes: +ACET-2154 PO; -AMIN30LI2 PO; +ASPI81TA31 PO; -ATOR20TA PO; -CALC1TAB84 PO; +FAMO-132 PO; +FAMO1TAB29 PO; +FERR325T24 PO; +FURO-151 PO; -GUAI120S17 PO; -HYDR-3326 PO; -ISON300T4 PO; +MELA3TAB PO; +MIRT15TA7 PO; -MIRT7.5T10 PO; -OMEP20TA20 PO; +ONDA4TAB5 PO; +PANT40TA2 PO; +POTA10TA15 PO; -ZOLP5TAB2 PO; +[UNRECOGNIZED DRUG - CODE] TP
[2018-05-09] MEDS ORDERED: BENZ1LOZ58 MM (17:35)
[2018-05-09] MEDS ORDERED: TRAM50TA2 PO (17:35)
[2018-05-09] MEDS ORDERED: IPRA3AMP22 IH (17:35)
[2018-05-09] MEDS ORDERED: POTA10TA15 PO (17:35)
[2018-05-09] MEDS ORDERED: FAMO1TAB29 PO (17:35)
[2018-05-09] MEDS ORDERED: LACT10SO6 PO (17:35)
[2018-05-09] MEDS ORDERED: MIRT7.5T10 PO (17:35)
[2018-05-09] MEDS ORDERED: GUAI600T53 PO (17:35)
[2018-05-09] MEDS ORDERED: ASPI-1152 PO (17:35)
--- NOTE | 2018-05-09 17:39 | NUR ---
RECEIVED AN 88 Y/O FEMALE PATIENT C/O GENERAL WEAKNESS, CONSCIOUS, DISORIENTED, PT CONNECTED TO STEEL FIXER, SEEN BY MD.12 LEAD EKG DONE AND LT AC LINE INSERTED,BLOOD SAMPLES TAKEN AND SENT TO LAB. CXR DONE.
[2018-05-09 17:52] LABS: BASOPHILS % (AUTO) 0.3 % (0.0-2.0); HEMATOCRIT 35.6 % (31.2-41.9); HEMOGLOBIN 11.4 g/dL (10.9-14.3); LYMPHOCYTES # (AUTO) 0.6 K/uL (20.0-40.0); LYMPHOCYTES % (AUTO) 6.5 % (20.5-51.5); MEAN CORPUSCULAR HEMOGLOBIN 30.9 uug (24.7-32.8); MEAN CORPUSCULAR HGB CONC 32 g/dL (32.3-35.6); MEAN CORPUSCULAR VOLUME 96.7 fL (75.5-95.3); MONOCYTES # (AUTO) 0.4 K/uL (2.0-10.0); MONOCYTES % (AUTO) 4.8 % (0.0-11.0); NEUTROPHILS # (AUTO) 7.9 K/uL (1.8-8.9); NEUTROPHILS % (AUTO) 88.4 % (38.5-71.5); PLATELET COUNT (AUTO) 180 K/uL (179-408); RED BLOOD CELL COUNT(AUTO) 3.69 MIL/uL (3.63-4.92); WHITE BLOOD COUNT (AUTO) 8.9 K/uL (3.8-11.8)
[2018-05-09 17:57] LABS: CARBON DIOXIDE 22 mmol/L (21-32); CHLORIDE 99 mmol/L (98-107); CREATININE 2.6 mg/dL (0.6-1.3); GLUCOSE 140 mg/dL (74-106); UREA NITROGEN, BLOOD 66 mg/dL (7-18)
--- NOTE | 2018-05-09 18:00 | NUR ---
ORDER BY DR MOHAN TO TRANFER PATIENT TO THE MEDSURGICAL UNIT. ORDER CARRIED.
--- NOTE | 2018-05-09 18:00 | NUR ---
URINE SAMPLE TAKEN AND SENT TO LAB
[2018-05-09 18:03] LABS: ALANINE AMINOTRANSFERASE 25 U/L (14-59); ALKALINE PHOSPHATASE 103 U/L (50-136); ASPARTATE AMINOTRANSFERASE 17 U/L (15-37); BILIRUBIN,DIRECT 0.2 mg/dL (0.0-0.2); BILIRUBIN,TOTAL 0.5 mg/dL (0.2-1.0); TOTAL PROTEIN, SERUM 6.5 g/dL (6.4-8.2)
[2018-05-09 18:10] LABS: *BILIRUBIN,URIN NEGATIVE (NEGATIVE); *BLOOD, URINE NEGATIVE (NEGATIVE); *CLARITY,URINE CLEAR (CLEAR); *COLOR,URINE YELLOW (YELLOW); *KETONES,URINE NEGATIVE (NEGATIVE); *PROTEIN,URINE 1+ (NEGATIVE); *UROBILINOGEN,URINE 0.2 E.U./dl (NORMAL); LEUKOCYTE ESTERASE ,URINE NEGATIVE (NEGATIVE); NITRITE, URINE NEGATIVE (NEGATIVE); UGLUCOSE NEGATIVE (NEGATIVE)
[2018-05-09 18:26] LABS: MUCUS,URINE FEW /LPF (0-FEW); SQUAMOUS EPITHELIAL CELL,UR FEW /HPF (NONE SEEN); URINE AMORPHOUS URATE FEW /HPF; WBC,URINE 0-3 /HPF (0-3)
--- NOTE | 2018-05-09 18:56 | NUR ---
PATIENT TRANSFERED TO 2ND FLOOR,MEDSURGICAL UNIT A CASE OF DEMENTIA, PNEUMONIA ON STRETCHER. ALL BELONGINGS AND FILE SENT WITH PATIENT.
[2018-05-09 20:00] VITALS: BP 137/35
[2018-05-09] MEDS ORDERED: LACTULOSE 20 G/30 ML LIQUID UDC PO PRN (20:00)
[2018-05-09] MEDS ORDERED: CALCIUM CARB PO PRN (20:00)
[2018-05-09] MEDS ORDERED: CLONIDINE HCL 0.1 MG TABLET PO PRN (20:00)
[2018-05-09] MEDS ORDERED: [UNRECOGNIZED DRUG - OTHER] PO PRN (20:00)
[2018-05-09] MEDS: CARVEDILOL 25 MG TABLET PO SCH (20:00)
[2018-05-09] MEDS ORDERED: ACETAMINOPHEN 325 MG TABLET PO PRN (20:00)
[2018-05-09] MEDS ORDERED: TRAMADOL HCL 50 MG TABLET PO PRN (20:00)
[2018-05-09] MEDS ORDERED: BENZOCAINE/MENTH/CETYLPYRD LOZENGE MM PRN (20:00)
[2018-05-09] MEDS ORDERED: FAMOTIDINE PO PRN (20:00)
[2018-05-09] MEDS ORDERED: MAG PO PRN (20:00)
--- NOTE | 2018-05-09 20:00 | NUR ---
Pt received in unit and observed to be confused and disoriented to time and place. No s/s of respiratory distress. Vital signs 117/60, HR 73, temperature 98.3, 18 RR, 93% SpO2 RA. Pertinent assessments done. Relaxation techniques provided. paged for orders. Safe environment implemented at all times. Bed in low, locked position with bed alarm on and call light within reach. Will continue to monitor closely.
[2018-05-09] MEDS ORDERED: IPRATROPIUM BROMIDE 0.5 MG/2.5 ML NEBU NEB PRN (20:45)
[2018-05-09] MEDS ORDERED: ALBUTEROL SULFATE 2.5 MG/3 ML NEBU NEB PRN (20:45)
[2018-05-09] MEDS: hydrALAZINE HCL 50 MG TABLET PO SCH (20:50)
[2018-05-09] MEDS: AZITHROMYCIN IV 500 MG in IV DEXTROSE 5% 250 ML IV SCH (20:54)
[2018-05-09] MEDS: MIRTAZAPINE 15 MG TABLET PO SCH (21:00)
[2018-05-09] MEDS: MELATONIN 3 MG TABLET PO SCH (21:00)
[2018-05-09] MEDS ORDERED: DONEPEZIL 5 MG TABLET PO SCH (21:00)
[2018-05-09] MEDS ORDERED: IV NS 1000 ML 1,000 ML IV ONE (21:00)
--- NOTE | 2018-05-09 21:30 | NUR ---
Unable to administer 2100 meds - pt confused and spitting out and refusing medications.
[2018-05-09] MEDS: LORAZEPAM 2 MG/1 ML VIAL IV PRN (23:10)
--- NOTE | 2018-05-09 23:30 | NUR ---
Pt observed to be agitated, restless and screaming at this time. Received orders from Dr. Roblero to administer Ativan 1 mg IV push Q6H PRN for agitation. Pt also upgraded to telemetry due to troponin at 0.116. Tele observed to be AV pacing at this time. Will continue to monitor closely.
[2018-05-10] VITALS: BP 106/42
[2018-05-10] MEDS ORDERED: HYDROCODONE/APAP 5-325MG TABLET PO SCH (00:30)
[2018-05-10 04:00] VITALS: BP 136/57
--- NOTE | 2018-05-10 05:24 | NUR ---
IV observed to have been pulled out by patient. New IV access restarted on right AC and flushing well. Pt remains confused at this time. Frequent reorientation provided. Pt repositioned and kept clean and dry. Tele monitor at this time is AV pacing. Bed in low, locked position with bed alarm on and call light within reach. Will endorse accordingly.
[2018-05-10 06:48] LABS: BASOPHILS % (AUTO) 0.3 % (0.0-2.0); HEMATOCRIT 34.3 % (31.2-41.9); HEMOGLOBIN 11.1 g/dL (10.9-14.3); LYMPHOCYTES # (AUTO) 0.6 K/uL (20.0-40.0); LYMPHOCYTES % (AUTO) 5.8 % (20.5-51.5); MEAN CORPUSCULAR HEMOGLOBIN 31.4 uug (24.7-32.8); MEAN CORPUSCULAR HGB CONC 32 g/dL (32.3-35.6); MONOCYTES # (AUTO) 0.6 K/uL (2.0-10.0); MONOCYTES % (AUTO) 5.9 % (0.0-11.0); NEUTROPHILS # (AUTO) 9.2 K/uL (1.8-8.9); PLATELET COUNT (AUTO) 184 K/uL (179-408); RED BLOOD CELL COUNT(AUTO) 3.53 MIL/uL (3.63-4.92); WHITE BLOOD COUNT (AUTO) 10.5 K/uL (3.8-11.8)
[2018-05-10 06:57] LABS: CARBON DIOXIDE 23 mmol/L (21-32); CHLORIDE 99 mmol/L (98-107); CREATININE 2.7 mg/dL (0.6-1.3); GLUCOSE 141 mg/dL (74-106); POTASSIUM 5.1 mmol/L (3.5-5.1); UREA NITROGEN, BLOOD 68 mg/dL (7-18)
[2018-05-10] MEDS: FAMOTIDINE 20 MG TABLET PO SCH (08:57)
[2018-05-10] MEDS: FERROUS SULFATE 325 MG TABEC PO SCH (08:57)
[2018-05-10] MEDS: ASCORBIC ACID 250 MG TABLET PO SCH (08:57)
[2018-05-10] MEDS: GUAIFENESIN LA 600 MG TABLET.SA PO SCH ×2 (08:57→17:00)
[2018-05-10] MEDS: ASPIRIN EC 81 MG TABLET.DR PO SCH (08:57)
[2018-05-10] MEDS: CHOLECALCIFEROL 1,000 UNIT TABLET PO SCH (08:58)
[2018-05-10] MEDS ORDERED: LORATADINE 10 MG TABLET PO SCH (09:00)
[2018-05-10] MEDS: Z GUARD REMEDY PASTE 57 GM TUBE TOP PRN (09:04)
[2018-05-10] MEDS: CARVEDILOL 25 MG TABLET PO SCH ×2 (09:07→17:00)
[2018-05-10] MEDS: hydrALAZINE HCL 50 MG TABLET PO SCH ×3 (09:07→17:00)
--- NOTE | 2018-05-10 09:07 | NUR ---
Non admin PO medications due to patient risk of aspiration, pending swallow evaluation. Will notify MD.
[2018-05-10] MEDS ORDERED: TRAMADOL HCL 50 MG TABLET PO PRN (09:30)
--- NOTE | 2018-05-10 09:35 | NUR ---
PATIENT CRYING, STATING "I DON'T WANT TO HAVE THE PROCEDURE THAT GOES INTO MY MOUTH, I NEED TO TALK TO THE PLANT ENGINEERING SUPERVISOR AND SEE WHAT HE SAYS". PROVIDED PATIENT TEACHINGS/EDUCATION REGARDING IMPORTANCE OF TREATMENT PLAN, PT VERBALIZED UNDERSTANDING. Addendum: 05/10/18 at 1030 by LAURENCE HUERTA RN AMEND: DISREGARD NOTES ABOVE.
[2018-05-10 11:14] VITALS: BP 134/52
[2018-05-10 15:14] VITALS: BP 135/48
[2018-05-10] MEDS: POTASSIUM CHLORIDE 10 MEQ TAB.PRT.SR PO SCH (16:00)
[2018-05-10] MEDS: FUROSEMIDE 40 MG TABLET PO SCH (16:00)
[2018-05-10] MEDS: HYDROCODONE/APAP 5-325MG TABLET PO SCH (16:00)
--- NOTE | 2018-05-10 16:00 | NUR ---
MD'S ORDER TO HOLD PO MEDS DUE TO PATIENT NOT ABLE TO DRINK, EAT, POCKETING FOOD, SPITTING MEDICATIONS, PATIENT VERY CONFUSED. VS STABLE, AFEBRILE, TELE MONITOR V PACING, PATIENT IN NO DISTRESS.
--- NOTE | 2018-05-10 17:11 | NUR ---
NON ADMIN PO PER MD'S ORDER TO HOLD MEDS TEMPORARILY DUE TO PATIENT'S MENTAL STATUS. STUDENT WORKER TO ORDER IV MEDS.
[2018-05-10] MEDS ORDERED: hydrALAZINE HCL 20 MG/1 ML VIAL IV PRN (17:30)
[2018-05-10] MEDS: IV D5/ 0.9% NACL 1,000 ML IV PRN (17:35)
[2018-05-10] MEDS: LORAZEPAM 2 MG/1 ML VIAL IV PRN ×2 (17:35→21:55)
--- NOTE | 2018-05-10 17:35 | NUR ---
Patient restless, moaning, agitated. prn med administered as ordered.
--- NOTE | 2018-05-10 18:00 | NUR ---
PT IN NO DISTRESS, NO SOB. PT IS CONFUSED. ASPIRATION AND SAFETY PRECAUTION OBSERVED AT ALL TIMES. PT KEPT CLEAN/DRY, REPOSITIONED FOR COMFORT. DAUGHTER AT BEDSIDE.
--- NOTE | 2018-05-10 19:30 | NUR ---
ROUNDS MADE PATENT IN BED ON AND OFF ASLEEP ,CONFUSED .NO RESPIRATORY DISTRESS NOTED BREATHING EVEN AND UNLABORED TOLERATING 02 NASAL CANNULA AT 2 L MIN . HOB UP . TUNRED AND REPOSITION PATIENT IVF IN PRIORESS D5 NS AT 75 ML/HR INFUSING VIA THE RIGHT UPPER FOREARM PERIPHERAL IVF ACCESS.
[2018-05-10 20:00] VITALS: BP 133/43
[2018-05-10] MEDS: AZITHROMYCIN IV 500 MG in IV DEXTROSE 5% 250 ML IV SCH (20:43)
[2018-05-10] MEDS: MIRTAZAPINE 15 MG TABLET PO SCH (20:59)
[2018-05-10] MEDS: MELATONIN 3 MG TABLET PO SCH (20:59)
--- NOTE | 2018-05-10 21:30 | NUR ---
DUE MEDICATION CRUSHED GIVEN WITH SIPS OF WATER HEAD OF THE BED UP , ASPIRATION PRECAUTION OBSERVED . SCAN MEDICATION AND GIVEN .
--- NOTE | 2018-05-10 21:55 | NUR ---
PATIENT VERY CONFUSED , UNDRESSING CLOTHES AND VERY AGITATED AND SCREAMING , DOESN'T FOLLOW COMMANDS, GIVEN PRN ATIVAN FOR ANXIETY . TURNED AND REPOSITION KEEP PATENT CLEAN AND DRY ,BED ALARM ON AND FREQUENT ROUNDING DONE .
[2018-05-11] VITALS (8 sets, daily range): BP systolic 100–132; BP diastolic 35–73
--- NOTE | 2018-05-11 07:49 | NUR ---
Sleeping, appears comfortable. Not in distress. O2 at 2L/NC. IVF infusing. Bed alarm on
[2018-05-11] MEDS: GUAIFENESIN LA 600 MG TABLET.SA PO SCH ×2 (09:00→16:56)
[2018-05-11] MEDS: hydrALAZINE HCL 50 MG TABLET PO SCH ×3 (09:00→16:56)
[2018-05-11] MEDS: FUROSEMIDE 40 MG TABLET PO SCH (09:00)
[2018-05-11] MEDS: FERROUS SULFATE 325 MG TABEC PO SCH (09:00)
[2018-05-11] MEDS: POTASSIUM CHLORIDE 10 MEQ TAB.PRT.SR PO SCH (09:00)
[2018-05-11] MEDS: PANTOPRAZOLE SODIUM 40 MG VIAL IV SCH (09:00)
[2018-05-11] MEDS: CHOLECALCIFEROL 1,000 UNIT TABLET PO SCH (09:00)
[2018-05-11] MEDS: ASPIRIN EC 81 MG TABLET.DR PO SCH (09:00)
[2018-05-11] MEDS ORDERED: LORATADINE 10 MG TABLET PO SCH (09:00)
[2018-05-11] MEDS: CARVEDILOL 25 MG TABLET PO SCH ×2 (09:00→16:56)
[2018-05-11] MEDS: ASCORBIC ACID 250 MG TABLET PO SCH (09:00)
[2018-05-11] MEDS: FAMOTIDINE 20 MG TABLET PO SCH (09:00)
--- NOTE | 2018-05-11 09:32 | NUR ---
Lethargic, Noted O2 sat 87-88% on O2 at 2L/NC. Oral care and secretions suctioned. O2 increased to 5-6L/NC humidified with O2 sat of 91%. Will continue to monitor. Did not give oral medications
--- NOTE | 2018-05-11 12:00 | NUR ---
Still lethargic. Placed on 1st step mattress. Repositioned. Oral care done. Vital signs monitored, stable
[2018-05-11] MEDS: HYDROCODONE/APAP 5-325MG TABLET PO SCH (12:29)
[2018-05-11] MEDS: IV D5/ 0.9% NACL 1,000 ML IV PRN (12:31)
--- NOTE | 2018-05-11 18:18 | NUR ---
Still lethargic, responsive with oral care and suctioning, moaning. O2 decreased to 3L/NC, with O2 sat of 99%. BP 144/44, HR 70. Tele DC.
--- NOTE | 2018-05-11 19:30 | NUR ---
PT REMAINS IN BED LETHARGIC AND RESPONSIVE TO TOUCH. OXYGEN VIA N/C INTACT AT 4L/MIN WITH 100% O2 SAT. PT REPOSITIONED WITH HOB ELEVATED 30 DEGREES. NO S/S OF ACUTE DISTRESS. BP NOTED 104/84. WILL CONTINUE TO MONITOR. REMAINING ON IV FLUIDS D5NS@ 75ML/HR.
[2018-05-11] MEDS: AZITHROMYCIN IV 500 MG in IV DEXTROSE 5% 250 ML IV SCH (20:45)
[2018-05-11] MEDS: MIRTAZAPINE 15 MG TABLET PO SCH (20:47)
[2018-05-11] MEDS: MELATONIN 3 MG TABLET PO SCH (20:47)
[2018-05-12 03:41] VITALS: BP 94/72
[2018-05-12] MEDS: IV D5/ 0.9% NACL 1,000 ML IV PRN ×2 (06:33→20:11)
--- NOTE | 2018-05-12 06:57 | NUR ---
PATIENT MAINTAINED ASLEEP THROUGHOUT NIGHT WITH PERIODS OF AGITATION. PT AROUSABLE TO TOUCH. UNABLE TO TAKE PO MEDICATIONS. MAINTAINING IV FLUIDS D5 NS @75ML/HR. NO ADVERSE REACTION TO RECENT ATB IV MEDICATION. PT REPOSITIONED. O2 SAT AT 95% 3L/MIN. WILL CONTINUE TO MONITOR.
[2018-05-12 07:24] LABS: BASOPHILS % (AUTO) 0.4 % (0.0-2.0); EOSINOPHILS % (AUTO) 0.2 % (0.0-7.0); HEMATOCRIT 36.5 % (31.2-41.9); HEMOGLOBIN 11.5 g/dL (10.9-14.3); LYMPHOCYTES # (AUTO) 0.6 K/uL (20.0-40.0); LYMPHOCYTES % (AUTO) 5.4 % (20.5-51.5); MEAN CORPUSCULAR HEMOGLOBIN 30.7 uug (24.7-32.8); MEAN CORPUSCULAR HGB CONC 31 g/dL (32.3-35.6); MEAN CORPUSCULAR VOLUME 97.9 fL (75.5-95.3); MONOCYTES # (AUTO) 1.2 K/uL (2.0-10.0); MONOCYTES % (AUTO) 10.4 % (0.0-11.0); NEUTROPHILS # (AUTO) 9.4 K/uL (1.8-8.9); NEUTROPHILS % (AUTO) 83.6 % (38.5-71.5); PLATELET COUNT (AUTO) 153 K/uL (179-408); RED BLOOD CELL COUNT(AUTO) 3.73 MIL/uL (3.63-4.92); WHITE BLOOD COUNT (AUTO) 11.2 K/uL (3.8-11.8)
[2018-05-12 07:26] LABS: CARBON DIOXIDE 22 mmol/L (21-32); CHLORIDE 104 mmol/L (98-107); CREATININE 3.7 mg/dL (0.6-1.3); GLUCOSE 186 mg/dL (74-106); POTASSIUM 5.2 mmol/L (3.5-5.1); UREA NITROGEN, BLOOD 78 mg/dL (7-18)
[2018-05-12 08:00] VITALS: BP 117/57
--- NOTE | 2018-05-12 08:00 | NUR ---
PATIENT STILL SLEEP BUT AROUSABLE TO TOUCH VS TAKEN STABLE CONTINUE O2 AT 3L O2 SAT WNL94% AND CONTINUE IVF ,UNABLE TO TAKE MEDICINE ON ASPIRATION AND FALL PRECAUTION BED ALARM ON AND CALL LIGHT IN REACH
[2018-05-12] MEDS: PANTOPRAZOLE SODIUM 40 MG VIAL IV SCH (08:10)
[2018-05-12] MEDS: Z GUARD REMEDY PASTE 57 GM TUBE TOP PRN (08:16)
[2018-05-12] MEDS: FUROSEMIDE 40 MG TABLET PO SCH (09:00)
[2018-05-12] MEDS: GUAIFENESIN LA 600 MG TABLET.SA PO SCH ×2 (09:00→17:00)
[2018-05-12] MEDS: POTASSIUM CHLORIDE 10 MEQ TAB.PRT.SR PO SCH (09:00)
[2018-05-12] MEDS: CARVEDILOL 25 MG TABLET PO SCH ×2 (09:00→17:00)
[2018-05-12] MEDS: FAMOTIDINE 20 MG TABLET PO SCH (09:00)
[2018-05-12] MEDS: ASPIRIN EC 81 MG TABLET.DR PO SCH (09:00)
[2018-05-12] MEDS: FERROUS SULFATE 325 MG TABEC PO SCH (09:00)
[2018-05-12] MEDS: ASCORBIC ACID 250 MG TABLET PO SCH (09:00)
[2018-05-12] MEDS: CHOLECALCIFEROL 1,000 UNIT TABLET PO SCH (09:00)
[2018-05-12] MEDS: hydrALAZINE HCL 50 MG TABLET PO SCH ×3 (09:00→17:00)
--- NOTE | 2018-05-12 10:00 | NUR ---
REPOSITION Q2 HR WHILE IN BED AND SUCTION PRN GIVEN SMALL WHITE MUCOUS AND RT GIVEN TREATMENT ABRAHAM PROCEDURE WELL FAMILY AT BEDSIDE
[2018-05-12 11:08] VITALS: BP 145/45
--- NOTE | 2018-05-12 12:00 | NUR ---
DR CHRISTIAN WAS INFORM OF PATIENT CONDITION AND LAB RERSULT BLADDER SCAN PERFORM RESIDUAL URINE WAS 221ML
[2018-05-12] MEDS: HYDROCODONE/APAP 5-325MG TABLET PO SCH (12:11)
--- NOTE | 2018-05-12 12:30 | NUR ---
F/C INSERTION AT THIS TIME NO URINE OUT PUT ,WILL OBSERVE
--- NOTE | 2018-05-12 14:00 | NUR ---
F/C INPLACE BUT URINE ONLY IN TUBING WITH SOME HEMATURIA CHANGE TO NEW CATHETER POSS SOME CLOTS AT THE END OF CATHETER , NO URINE YET ,WILL OBSERVE
--- NOTE | 2018-05-12 14:10 | NUR ---
US OF KIDNEY DONE AT BEDSIDE ABRAHAM PROCEDURE WELL VS STABLE
[2018-05-12 15:12] VITALS: BP 141/41
[2018-05-12 15:39] LABS: CARBON DIOXIDE 21 mmol/L (21-32); CHLORIDE 102 mmol/L (98-107); CREATININE 3.8 mg/dL (0.6-1.3); GLUCOSE 182 mg/dL (74-106); POTASSIUM 4.8 mmol/L (3.5-5.1); UREA NITROGEN, BLOOD 76 mg/dL (7-18)
--- NOTE | 2018-05-12 15:45 | NUR ---
DR CHRISTIAN WAS CALL AND MESSAGE LEFT REGARDING LAB RESULT BMP REPEAT THIS AFTERNOON AND NOTIFY OF NO URINE OUTPUT
--- NOTE | 2018-05-12 16:15 | NUR ---
DR CHRISTIAN CALL BACK RESULT OF US OF KIDNEY AND CHEM 7 REPEAT TODAY AND NO URINE OUT PUT AFTER F/C INSERTION NOTIFY NO NEW ORDER,CLOSED OBSERVATION
--- NOTE | 2018-05-12 18:30 | NUR ---
STABLE CONDITION NO ACUTE DISTRESS NO URNE OUT PUT FROM F/C ON ASPIRATION AND FALL PRECAUTION CONTINUE IVF SAFETY MEASURE PROVIDED CALL LIGHT IN REACH
--- NOTE | 2018-05-12 19:20 | NUR ---
RECEIVED PT LYING IN BED. AWAKE, MAKING NOISES BUT NON-VERBAL. ON O2 AT 3LPM VIA NC IN PLACE. IN NO ACUTE DISTRESS. IV SITEON RIGHT FA INTACT AND PATENT. IVF INFUSING. FC INTACT AND PATENT. NO URINE NOTED AT THIS TIME. SAFETY MEASURE INITIATED.
[2018-05-12] MEDS: AZITHROMYCIN IV 500 MG in IV DEXTROSE 5% 250 ML IV SCH (20:11)
[2018-05-12] MEDS: MIRTAZAPINE 15 MG TABLET PO SCH (20:13)
[2018-05-12] MEDS: MELATONIN 3 MG TABLET PO SCH (20:13)
[2018-05-12 20:26] VITALS: BP 112/52
--- NOTE | 2018-05-12 21:00 | NUR ---
PT PALE IN APPEARANCE, SKIN COOL TO TOUCH. WITH OFF AND ON GURGLING SOUND. SUCTION SECRETION GENTLY AND TOLERATED. HOB KEPT ELEVATED. ON CONTINOUS O2 AT 3LPM VIA NC IN PLACE. CONTINUE TO MONITOR.
--- NOTE | 2018-05-12 21:30 | NUR ---
PT MONITORED CLOSELY FOR ANY SIGNS OF DISTRESS. REPOSITIONED FOR COMFORT. NEEDS ASSESSED AND ATTENDED TO. NOTED WITH SHALLOW BREATHING AND PERIODS OF APNEA LASTING 5-10 SECONDS. SKIN VERY PALE, COOL AND CLAMMY. FINGERTIPS CYANOTIC. VERY LETHARGIC. ON CONTINUOUS O2 AT 3LPM VIA NC IN PLACE. CONTINUE TO MONITOR.
--- NOTE | 2018-05-12 21:45 | NUR ---
PT NOTED UNRESPONSIVE. NO RISE OR FALL OF THE CHEST NOTED. NO PALPABLE PULSES. PUPILS FIXED DILATED. NOTIFIED CHARGE NURSE. PT DNR STATUS.
--- NOTE | 2018-05-12 21:50 | NUR ---
PRONOUNCED BY CHARGE NURSE DANNY BEAN RN.
--- NOTE | 2018-05-12 22:05 | NUR ---
MD - DOCTOR Toi CHRISTIAN, NURSING FOREIGN LANGUAGES PROFESSOR JORDI AMEZQUITA AND BILLIARD TABLE REPAIRER MARIAN NOTIFIED REGARDING PT EXPIRATION.
--- NOTE | 2018-05-12 22:10 | NUR ---
TELEPHONE CALL TO PT DAUGHTER AUDREY ORLANDO AND NOTIFIED OF PT . MORTUARY [facility] CONTACTED AND APPROPRIATE INFORMATION PROVIDED. POST MORTEM CARE RENDERED. PERSONAL BELONGING PROPERLY LABELLED.
--- NOTE | 2018-05-12 23:00 | NUR ---
AWAITING FOR MORTUARY SALESPERSON BOOKS.
--- NOTE | 2018-05-12 23:35 | NUR ---
[facility] MORTUARY ARRIVED AND EMAIL PRODUCTION CONSULTANT BODY.
[2018-05-13] MEDS ORDERED: PANTOPRAZOLE SODIUM 40 MG TABLET.DR PO SCH (07:00)
== END 2018-05-12 23:35 | disposition expired | DRG 682 ==
LOC: ER 17:10 → MED 18:52 → TELE 23:00 → MED 05-11 17:15
PROVIDERS: ADMIT Internal Medicine; ATTEND Internal Medicine
DX: N17.0 Acute kidney failure with tubular necrosis (principal); G93.41 Metabolic encephalopathy; I21.A1 Myocardial infarction type 2; I13.0 Hypertensive heart and chronic kidney disease with heart failure and stage 1 through stage 4 chronic kidney disease, or unspecified chronic kidney disease; I50.22 Chronic systolic (congestive) heart failure; I42.9 Cardiomyopathy, unspecified; Z66 Do not resuscitate; N18.9 Chronic kidney disease, unspecified; I25.10 Atherosclerotic heart disease of native coronary artery without angina pectoris; Z95.0 Presence of cardiac pacemaker; E87.5 Hyperkalemia; R60.0 Localized edema; F03.90 Unspecified dementia, unspecified severity, without behavioral disturbance, psychotic disturbance, mood disturbance, and anxiety; K21.9 Gastro-esophageal reflux disease without esophagitis; Z79.899 Other long term (current) drug therapy; Z79.82 Long term (current) use of aspirin; D53.9 Nutritional anemia, unspecified
CPT/HCPCS: 36415; 70030-TC; 70450; 71045; 76770; 83605; 85025; 85730; 87040; 87086; 92610; 93005; 94664; A4663; C9113; J0456; J2060; J3590; J7030; J7042; J7060